=== PATIENT | female | born 1945 | race Two or more races ===

== ENCOUNTER 2017-10-16 12:28 | Outpatient (CLI) | payer OTHER | END 2017-10-16 12:31 | disposition home or self-care (01) | LOC: RAD 12:28 | DX: M54.2 Cervicalgia (principal); M25.511 Pain in right shoulder ==

== ENCOUNTER 2017-11-10 12:16 | Outpatient (CLI) | payer OTHER | END 2017-11-10 17:00 | disposition home or self-care (01) | LOC: MRI 12:16 | DX: M48.061 Spinal stenosis, lumbar region without neurogenic claudication (principal); M54.5 Low back pain | CPT/HCPCS: 72148 ==

== ENCOUNTER 2019-07-04 12:33 | Outpatient (CLI) | payer OTHER | END 2019-07-04 12:35 | disposition home or self-care (01) | LOC: SONOGRAMA 12:33 | DX: M79.662 Pain in left lower leg (principal) ==

== ENCOUNTER 2021-01-14 08:06 | Outpatient (CLI) | payer OTHER | END 2021-01-14 08:16 | disposition home or self-care (01) | LOC: RAD 08:06 | PROVIDERS: ATTEND Physical Medicine & Rehabilitation | DX: M17.11 Unilateral primary osteoarthritis, right knee (principal); M25.561 Pain in right knee ==

== ENCOUNTER 2021-01-28 08:50 | Outpatient (CLI) | payer OTHER | END 2021-01-28 08:52 | disposition home or self-care (01) | LOC: RAD 08:50 | PROVIDERS: ATTEND General Practice | DX: R07.89 Other chest pain (principal) ==

== ENCOUNTER 2021-02-11 11:40 | Outpatient (CLI) | payer OTHER | END 2021-02-11 11:48 | disposition home or self-care (01) | LOC: RAD 11:40 | PROVIDERS: ATTEND Physical Medicine & Rehabilitation | DX: M77.31 Calcaneal spur, right foot (principal) ==

== ENCOUNTER 2022-01-10 08:03 | Outpatient (CLI) | payer OTHER | END 2022-01-10 08:04 | disposition home or self-care (01) | LOC: NUCLEAR 08:03 | PROVIDERS: ATTEND Podiatrist Foot Surgery | DX: I87.9 Disorder of vein, unspecified (principal) ==

== ENCOUNTER 2022-06-30 07:03 | Outpatient (CLI) | payer OTHER | END 2022-06-30 07:06 | disposition home or self-care (01) | LOC: MRI 07:03 | PROVIDERS: ATTEND Physical Medicine & Rehabilitation | DX: M54.59 Other low back pain (principal); M54.16 Radiculopathy, lumbar region | CPT/HCPCS: 72148 ==

== ENCOUNTER 2022-11-03 13:36 | Outpatient (CLI) | payer OTHER | END 2022-11-03 13:44 | disposition home or self-care (01) | LOC: RAD 13:36 | PROVIDERS: ATTEND Physical Medicine & Rehabilitation | DX: M17.11 Unilateral primary osteoarthritis, right knee (principal); M25.561 Pain in right knee ==

== ENCOUNTER 2022-12-22 08:31 | Outpatient (CLI) | payer OTHER | END 2022-12-22 08:36 | disposition home or self-care (01) | LOC: NUCLEAR 08:31 | PROVIDERS: ATTEND Internal Medicine | DX: I87.2 Venous insufficiency (chronic) (peripheral) (principal); I73.9 Peripheral vascular disease, unspecified ==

== ENCOUNTER 2024-08-12 07:13 | Outpatient (CLI) | payer OTHER | END 2024-08-12 07:20 | disposition home or self-care (01) | LOC: MRI 07:13 | PROVIDERS: ATTEND Chiropractor | DX: S83.2 Tear of meniscus, current injury (principal) | CPT/HCPCS: 73721 ==